=== PATIENT | male | born 1955 | race African-American/Black ===

== ENCOUNTER 2021-09-14 14:35 | Inpatient (IN) ==
[2021-09-14] MEDS ORDERED: Saline Nasal Spray 44 ML BOTTLE NS PRN (17:36)
[2021-09-14] MEDS ORDERED: *HR* Alteplase (Cathflo) 2 MG VIAL IVP ONE (17:57)
[2021-09-14] MEDS ORDERED: *HR* OxyCODONE Immed Rel 5 MG TABLET PO PRN (18:07)
[2021-09-14] MEDS ORDERED: Vancomycin 1,250 MG/262.5 ML IV.SOLN IVPB SCH (19:00)
[2021-09-14] MEDS: Cefepime HCl 2,000 MG in 0.9 % Sodium Chloride Mini Bag 100 ML IVPB SCH (20:40)
[2021-09-14] MEDS: QUEtiapine Fumarate 25 MG TABLET PO SCH (20:41)
[2021-09-14] MEDS: Gabapentin 300 MG CAPSULE PO SCH (20:42)
[2021-09-14] MEDS: Sennosides/Docusate Sodium TABLET PO SCH (20:43)
[2021-09-14] MEDS: Famotidine 20 MG TABLET PO SCH (20:44)
[2021-09-14] MEDS: levETIRAcetam 500 MG/5 ML UDC PO SCH (20:52)
[2021-09-14] MEDS: Vancomycin 500 MG in 0.9 % Sodium Chloride Mini Bag 100 ML IVPB SCH (21:39)
[2021-09-15] MEDS: Cefepime HCl 2,000 MG in 0.9 % Sodium Chloride Mini Bag 100 ML IVPB SCH ×3 (01:33→17:26)
[2021-09-15] MEDS: Vancomycin 500 MG in 0.9 % Sodium Chloride Mini Bag 100 ML IVPB SCH (06:00)
[2021-09-15] MEDS: *HR* Enoxaparin 40 MG/0.4 ML SYRINGE SQ SCH (06:03)
[2021-09-15 08:07] LABS: Basophils % 0.3 %; Eosinophils # 0.3 K/mcL (0.0-0.6); Eosinophils % 4.3 %; Hematocrit 32.8 % (37.5-50.1); Hemoglobin 10.6 g/dL (12.9-16.9); Immature Granulocytes % 0.2 % (0-4); Lymphocytes # 1.3 K/mcL (0.6-4.6); Lymphocytes % 22.2 %; Mean Corpuscular HGB Conc 32.3 g/dL (31.6-35.5); Mean Corpuscular Hemoglobin 28.8 pg (28.0-33.3); Mean Corpuscular Volume 89.1 fL (83.0-100.0); Mean Platelet Volume 10.1 fL (9.4-12.4); Monocytes # 0.9 K/mcL (0.0-1.3); Monocytes % 15.3 %; Neutrophils # 3.5 K/mcL (1.6-8.9); Platelet Count 143 K/mcL (140-400); Red Blood Count 3.68 M/mcL (4.19-5.50); Segmented Neutrophils % 57.7 %
[2021-09-15 08:28] LABS: BUN/Creatinine Ratio 14 (6-26); Blood Urea Nitrogen 11 mg/dL (8-23); Calcium 8.4 mg/dL (8.6-10.3); Carbon Dioxide 28 mEq/L (23-29); Chloride 110 mEq/L (98-107); Glucose 96 mg/dL (70-105); Magnesium 1.9 mg/dL (1.6-2.6); Osmolality,Calculated 295 (280-300); Potassium 4.1 mEq/L (3.5-5.1); Sodium 143 mEq/L (136-145); eGFR For African Americans > 60 (> 60); eGFR For Non-African Americans > 60 (> 60)
[2021-09-15] MEDS ORDERED: VALSARTAN 80 MG PO SCH (09:00)
[2021-09-15] MEDS ORDERED: HYDROCHLOROTHIAZIDE 12.5 MG PO SCH (09:00)
[2021-09-15] MEDS: levETIRAcetam 500 MG/5 ML UDC PO SCH ×2 (09:45→20:11)
[2021-09-15] MEDS: Thiamine (B-1) 100 MG TABLET PO SCH (09:47)
[2021-09-15] MEDS: Valsartan 80 MG TABLET PO SCH (09:47)
[2021-09-15] MEDS: Multivit/Ca/Min/Fe/FA 1 TAB TABLET PO SCH (09:47)
[2021-09-15] MEDS: Famotidine 20 MG TABLET PO SCH ×2 (09:48→20:11)
[2021-09-15] MEDS: Sennosides/Docusate Sodium TABLET PO SCH ×2 (09:48→20:11)
[2021-09-15] MEDS: amLODIPine 5 MG TABLET PO SCH (09:48)
[2021-09-15] MEDS: hydroCHLOROthiazide 25 MG TABLET PO SCH (09:49)
[2021-09-15] MEDS: allopurinoL 300 MG TABLET PO SCH (09:49)
[2021-09-15] MEDS: Gabapentin 300 MG CAPSULE PO SCH (20:11)
[2021-09-15] MEDS: QUEtiapine Fumarate 25 MG TABLET PO SCH (20:11)
[2021-09-15] MEDS: Vancomycin 1,250 MG/262.5 ML IV.SOLN IVPB SCH (20:19)
[2021-09-16] MEDS: Cefepime HCl 2,000 MG in 0.9 % Sodium Chloride Mini Bag 100 ML IVPB SCH ×3 (02:26→17:19)
[2021-09-16] MEDS: *HR* Enoxaparin 40 MG/0.4 ML SYRINGE SQ SCH (05:08)
[2021-09-16] MEDS: levETIRAcetam 500 MG/5 ML UDC PO SCH ×2 (10:12→21:58)
[2021-09-16] MEDS: amLODIPine 5 MG TABLET PO SCH (10:14)
[2021-09-16] MEDS: Valsartan 80 MG TABLET PO SCH (10:15)
[2021-09-16] MEDS: Thiamine (B-1) 100 MG TABLET PO SCH (10:15)
[2021-09-16] MEDS: hydroCHLOROthiazide 25 MG TABLET PO SCH (10:15)
[2021-09-16] MEDS: Sennosides/Docusate Sodium TABLET PO SCH ×2 (10:15→21:56)
[2021-09-16] MEDS: allopurinoL 300 MG TABLET PO SCH (10:16)
[2021-09-16] MEDS: Famotidine 20 MG TABLET PO SCH ×2 (10:16→21:58)
[2021-09-16] MEDS: Multivit/Ca/Min/Fe/FA 1 TAB TABLET PO SCH (10:17)
[2021-09-16] MEDS: Vancomycin 1,250 MG/262.5 ML IV.SOLN IVPB SCH (14:25)
[2021-09-16] MEDS: QUEtiapine Fumarate 25 MG TABLET PO SCH (21:56)
[2021-09-16] MEDS: Gabapentin 300 MG CAPSULE PO SCH (21:57)
[2021-09-17] MEDS: Cefepime HCl 2,000 MG in 0.9 % Sodium Chloride 20 ML IVP SCH ×2 (02:03→09:39)
[2021-09-17] MEDS: Vancomycin 1,250 MG/262.5 ML IV.SOLN IVPB SCH ×3 (02:05→14:48)
[2021-09-17] MEDS: *HR* Enoxaparin 40 MG/0.4 ML SYRINGE SQ SCH (05:22)
[2021-09-17] MEDS: Valsartan 80 MG TABLET PO SCH (09:36)
[2021-09-17] MEDS: allopurinoL 300 MG TABLET PO SCH (09:36)
[2021-09-17] MEDS: Sennosides/Docusate Sodium TABLET PO SCH ×2 (09:37→21:15)
[2021-09-17] MEDS: hydroCHLOROthiazide 25 MG TABLET PO SCH (09:37)
[2021-09-17] MEDS: Thiamine (B-1) 100 MG TABLET PO SCH (09:37)
[2021-09-17] MEDS: Multivit/Ca/Min/Fe/FA 1 TAB TABLET PO SCH (09:38)
[2021-09-17] MEDS: amLODIPine 5 MG TABLET PO SCH (09:38)
[2021-09-17] MEDS: Famotidine 20 MG TABLET PO SCH ×2 (09:38→21:15)
[2021-09-17] MEDS: levETIRAcetam 500 MG/5 ML UDC PO SCH ×2 (09:48→21:19)
[2021-09-17] MEDS: Cefepime HCl 2,000 MG in 0.9 % Sodium Chloride Mini Bag 100 ML IVPB SCH (18:22)
[2021-09-17] MEDS: Gabapentin 300 MG CAPSULE PO SCH (21:14)
[2021-09-17] MEDS: QUEtiapine Fumarate 25 MG TABLET PO SCH (21:14)
[2021-09-18] MEDS: Cefepime HCl 2,000 MG in 0.9 % Sodium Chloride Mini Bag 100 ML IVPB SCH ×3 (02:30→17:19)
[2021-09-18] MEDS: Vancomycin 1,250 MG/262.5 ML IV.SOLN IVPB SCH ×2 (02:33→14:06)
[2021-09-18] MEDS: *HR* Enoxaparin 40 MG/0.4 ML SYRINGE SQ SCH (06:17)
[2021-09-18] MEDS: Multivit/Ca/Min/Fe/FA 1 TAB TABLET PO SCH (09:52)
[2021-09-18] MEDS: Famotidine 20 MG TABLET PO SCH ×2 (09:52→20:06)
[2021-09-18] MEDS: Valsartan 80 MG TABLET PO SCH (09:52)
[2021-09-18] MEDS: amLODIPine 5 MG TABLET PO SCH (09:52)
[2021-09-18] MEDS: hydroCHLOROthiazide 25 MG TABLET PO SCH (09:53)
[2021-09-18] MEDS: allopurinoL 300 MG TABLET PO SCH (09:53)
[2021-09-18] MEDS: Sennosides/Docusate Sodium TABLET PO SCH ×2 (09:54→20:06)
[2021-09-18] MEDS: Thiamine (B-1) 100 MG TABLET PO SCH (09:54)
[2021-09-18] MEDS: levETIRAcetam 500 MG/5 ML UDC PO SCH ×2 (10:11→20:05)
[2021-09-18] MEDS: QUEtiapine Fumarate 25 MG TABLET PO SCH (20:06)
[2021-09-18] MEDS: Gabapentin 300 MG CAPSULE PO SCH (20:06)
[2021-09-19] MEDS: Cefepime HCl 2,000 MG in 0.9 % Sodium Chloride Mini Bag 100 ML IVPB SCH ×3 (01:59→18:10)
[2021-09-19] MEDS: Vancomycin 1,250 MG/262.5 ML IV.SOLN IVPB SCH ×2 (02:36→15:48)
[2021-09-19] MEDS: *HR* Enoxaparin 40 MG/0.4 ML SYRINGE SQ SCH (06:06)
[2021-09-19 07:03] LABS: eGFR For African Americans > 60 (> 60); eGFR For Non-African Americans > 60 (> 60)
[2021-09-19] MEDS: levETIRAcetam 500 MG/5 ML UDC PO SCH ×2 (10:00→20:04)
[2021-09-19] MEDS: Multivit/Ca/Min/Fe/FA 1 TAB TABLET PO SCH (10:01)
[2021-09-19] MEDS: Sennosides/Docusate Sodium TABLET PO SCH ×2 (10:02→20:05)
[2021-09-19] MEDS: Famotidine 20 MG TABLET PO SCH ×2 (10:02→20:04)
[2021-09-19] MEDS: amLODIPine 5 MG TABLET PO SCH (10:03)
[2021-09-19] MEDS: hydroCHLOROthiazide 25 MG TABLET PO SCH (10:03)
[2021-09-19] MEDS: allopurinoL 300 MG TABLET PO SCH (10:03)
[2021-09-19] MEDS: Valsartan 80 MG TABLET PO SCH (10:05)
[2021-09-19] MEDS: Thiamine (B-1) 100 MG TABLET PO SCH (10:05)
[2021-09-19] MEDS ORDERED: Nitroglycerin 0.4 MG TAB.SUBL SL PRN (11:25)
[2021-09-19] MEDS ORDERED: Isovue-370 500 ML BOTTLE IVP ONE (11:58)
[2021-09-19] MEDS ORDERED: *HR* LORazepam 2 MG/ML VIAL IVP PRN (13:40)
[2021-09-19 17:44] LABS: Amphetamine Screen,Urine Negative ng/mL (Cutoff=1000); Barbiturate Screen,Urine Negative ng/mL (Cutoff=200); Benzodiazepines Screen,Urine Negative ng/mL (Cutoff=200); Cannabinoid Screen,Urine Negative ng/mL (Cutoff = 50); Cocaine Screen,Urine Negative ng/mL (Cutoff= 300); Opiate Screen,Urine Negative ng/mL (Cutoff=300); Phencyclidine Screen,Urine Negative ng/mL (Cutoff=25)
[2021-09-19 18:19] LABS: BUN/Creatinine Ratio 16 (6-26); Blood Urea Nitrogen 13 mg/dL (8-23); Calcium 8.3 mg/dL (8.6-10.3); Carbon Dioxide 28 mEq/L (23-29); Chloride 107 mEq/L (98-107); Glucose 82 mg/dL (70-105); Magnesium 2.1 mg/dL (1.6-2.6); Osmolality,Calculated 293 (280-300); Potassium 3.9 mEq/L (3.5-5.1); Sodium 142 mEq/L (136-145); eGFR For African Americans > 60 (> 60); eGFR For Non-African Americans > 60 (> 60)
[2021-09-19] MEDS: Gabapentin 300 MG CAPSULE PO SCH (20:04)
[2021-09-19] MEDS: QUEtiapine Fumarate 25 MG TABLET PO SCH (20:04)
[2021-09-19] MEDS ORDERED: Metoprolol XL (24 HR) Succ 25 MG TAB.ER.24H PO SCH ×2 (22:45→23:04)
[2021-09-19] MEDS ORDERED: Perflutren Lipid Microsphere 1.3 ML in 0.9 % Sodium Chloride 8.7 ML IVP PRN (22:48)
[2021-09-20] MEDS: Metoprolol XL (24 HR) Succ 25 MG TAB.ER.24H PO SCH ×2 (00:05→08:20)
[2021-09-20] MEDS: Cefepime HCl 2,000 MG in 0.9 % Sodium Chloride Mini Bag 100 ML IVPB SCH ×3 (02:09→18:30)
[2021-09-20] MEDS: *HR* Enoxaparin 40 MG/0.4 ML SYRINGE SQ SCH (05:54)
[2021-09-20] MEDS: allopurinoL 300 MG TABLET PO SCH (08:20)
[2021-09-20] MEDS: levETIRAcetam 500 MG/5 ML UDC PO SCH ×2 (08:20→20:16)
[2021-09-20] MEDS: Famotidine 20 MG TABLET PO SCH ×2 (08:20→20:16)
[2021-09-20] MEDS: hydroCHLOROthiazide 25 MG TABLET PO SCH (08:21)
[2021-09-20] MEDS: Thiamine (B-1) 100 MG TABLET PO SCH (08:21)
[2021-09-20] MEDS: Valsartan 80 MG TABLET PO SCH (08:21)
[2021-09-20] MEDS: amLODIPine 5 MG TABLET PO SCH (08:21)
[2021-09-20] MEDS: Multivit/Ca/Min/Fe/FA 1 TAB TABLET PO SCH (08:21)
[2021-09-20] MEDS: Sennosides/Docusate Sodium TABLET PO SCH ×2 (08:27→20:17)
[2021-09-20] MEDS: QUEtiapine Fumarate 25 MG TABLET PO SCH (20:16)
[2021-09-20] MEDS: Gabapentin 300 MG CAPSULE PO SCH (20:16)
[2021-09-21] MEDS: Cefepime HCl 2,000 MG in 0.9 % Sodium Chloride Mini Bag 100 ML IVPB SCH ×3 (02:23→17:23)
[2021-09-21] MEDS: *HR* Enoxaparin 40 MG/0.4 ML SYRINGE SQ SCH (06:17)
[2021-09-21 07:58] LABS: eGFR For African Americans > 60 (> 60); eGFR For Non-African Americans > 60 (> 60)
[2021-09-21] MEDS: levETIRAcetam 500 MG/5 ML UDC PO SCH ×2 (09:45→20:19)
[2021-09-21] MEDS: Sennosides/Docusate Sodium TABLET PO SCH ×2 (09:46→20:20)
[2021-09-21] MEDS: Thiamine (B-1) 100 MG TABLET PO SCH (09:46)
[2021-09-21] MEDS: Multivit/Ca/Min/Fe/FA 1 TAB TABLET PO SCH (09:46)
[2021-09-21] MEDS: Metoprolol XL (24 HR) Succ 25 MG TAB.ER.24H PO SCH (09:50)
[2021-09-21] MEDS: allopurinoL 300 MG TABLET PO SCH (10:15)
[2021-09-21] MEDS: Valsartan 80 MG TABLET PO SCH (10:16)
[2021-09-21] MEDS: hydroCHLOROthiazide 25 MG TABLET PO SCH (10:17)
[2021-09-21] MEDS: Famotidine 20 MG TABLET PO SCH ×2 (10:17→20:20)
[2021-09-21] MEDS: amLODIPine 5 MG TABLET PO SCH (10:17)
[2021-09-21] MEDS: Acetaminophen 325 MG TABLET PO PRN (14:35)
[2021-09-21] MEDS: Gabapentin 300 MG CAPSULE PO SCH (20:19)
[2021-09-21] MEDS: QUEtiapine Fumarate 25 MG TABLET PO SCH (20:20)
[2021-09-22] MEDS: Cefepime HCl 2,000 MG in 0.9 % Sodium Chloride Mini Bag 100 ML IVPB SCH ×3 (02:41→17:54)
[2021-09-22] MEDS: *HR* Enoxaparin 40 MG/0.4 ML SYRINGE SQ SCH (06:01)
[2021-09-22] MEDS ORDERED: lisinopriL 5 MG TABLET PO SCH (09:00)
[2021-09-22] MEDS: Multivit/Ca/Min/Fe/FA 1 TAB TABLET PO SCH (09:06)
[2021-09-22] MEDS: Valsartan 80 MG TABLET PO SCH (09:06)
[2021-09-22] MEDS: allopurinoL 300 MG TABLET PO SCH (09:06)
[2021-09-22] MEDS: Furosemide 20 MG TABLET PO SCH (09:07)
[2021-09-22] MEDS: amLODIPine 5 MG TABLET PO SCH (09:07)
[2021-09-22] MEDS: Metoprolol XL (24 HR) Succ 25 MG TAB.ER.24H PO SCH (09:07)
[2021-09-22] MEDS: hydroCHLOROthiazide 25 MG TABLET PO SCH (09:07)
[2021-09-22] MEDS: Famotidine 20 MG TABLET PO SCH ×2 (09:07→19:53)
[2021-09-22] MEDS: Thiamine (B-1) 100 MG TABLET PO SCH (09:08)
[2021-09-22] MEDS: Sennosides/Docusate Sodium TABLET PO SCH ×2 (09:10→19:56)
[2021-09-22] MEDS: levETIRAcetam 500 MG/5 ML UDC PO SCH ×2 (09:26→19:55)
[2021-09-22] MEDS: Gabapentin 300 MG CAPSULE PO SCH (19:53)
[2021-09-22] MEDS: QUEtiapine Fumarate 25 MG TABLET PO SCH (19:54)
[2021-09-23] MEDS: Cefepime HCl 2,000 MG in 0.9 % Sodium Chloride Mini Bag 100 ML IVPB SCH ×3 (01:49→17:50)
[2021-09-23] MEDS: *HR* Enoxaparin 40 MG/0.4 ML SYRINGE SQ SCH (06:28)
[2021-09-23] MEDS: hydroCHLOROthiazide 25 MG TABLET PO SCH (09:30)
[2021-09-23] MEDS: allopurinoL 300 MG TABLET PO SCH (09:30)
[2021-09-23] MEDS: Valsartan 80 MG TABLET PO SCH (09:30)
[2021-09-23] MEDS: Famotidine 20 MG TABLET PO SCH ×2 (09:30→19:46)
[2021-09-23] MEDS: levETIRAcetam 500 MG/5 ML UDC PO SCH ×2 (09:30→19:47)
[2021-09-23] MEDS: amLODIPine 5 MG TABLET PO SCH (09:30)
[2021-09-23] MEDS: Furosemide 20 MG TABLET PO SCH (09:31)
[2021-09-23] MEDS: Multivit/Ca/Min/Fe/FA 1 TAB TABLET PO SCH (09:31)
[2021-09-23] MEDS: Thiamine (B-1) 100 MG TABLET PO SCH (09:31)
[2021-09-23] MEDS: Metoprolol XL (24 HR) Succ 25 MG TAB.ER.24H PO SCH (09:32)
[2021-09-23] MEDS: Sennosides/Docusate Sodium TABLET PO SCH ×2 (09:33→19:47)
[2021-09-23] MEDS ORDERED: Metoprolol XL (24 HR) Succ 25 MG TAB.ER.24H PO ONE (14:14)
[2021-09-23] MEDS: QUEtiapine Fumarate 25 MG TABLET PO SCH (19:44)
[2021-09-23] MEDS: Gabapentin 300 MG CAPSULE PO SCH (19:46)
[2021-09-24] MEDS: Cefepime HCl 2,000 MG in 0.9 % Sodium Chloride Mini Bag 100 ML IVPB SCH ×3 (01:46→17:40)
[2021-09-24] MEDS: *HR* Enoxaparin 40 MG/0.4 ML SYRINGE SQ SCH (05:54)
[2021-09-24] MEDS: Metoprolol XL (24 HR) Succ 25 MG TAB.ER.24H PO SCH (07:30)
[2021-09-24 07:35] LABS: Basophils % 0.6 %; Eosinophils # 0.2 K/mcL (0.0-0.6); Eosinophils % 3.9 %; Hemoglobin 10.9 g/dL (12.9-16.9); Immature Granulocytes % 0.2 % (0-4); Lymphocytes # 1.5 K/mcL (0.6-4.6); Lymphocytes % 28.5 %; Mean Corpuscular Volume 87.8 fL (83.0-100.0); Mean Platelet Volume 10.1 fL (9.4-12.4); Monocytes # 0.9 K/mcL (0.0-1.3); Monocytes % 17.1 %; Neutrophils # 2.5 K/mcL (1.6-8.9); Platelet Count 189 K/mcL (140-400); Red Blood Count 3.76 M/mcL (4.19-5.50); Red Cell Distribution Width 14.6 % (11.5-14.5); Segmented Neutrophils % 49.7 %; White Blood Count 5.1 K/mcL (4.3-11.1)
[2021-09-24] MEDS: Multivit/Ca/Min/Fe/FA 1 TAB TABLET PO SCH (07:41)
[2021-09-24] MEDS: Valsartan 80 MG TABLET PO SCH (07:42)
[2021-09-24] MEDS: amLODIPine 5 MG TABLET PO SCH (07:42)
[2021-09-24] MEDS: Famotidine 20 MG TABLET PO SCH ×2 (07:42→20:27)
[2021-09-24] MEDS: Thiamine (B-1) 100 MG TABLET PO SCH (07:43)
[2021-09-24] MEDS: Furosemide 20 MG TABLET PO SCH (07:43)
[2021-09-24] MEDS: allopurinoL 300 MG TABLET PO SCH (07:43)
[2021-09-24] MEDS: levETIRAcetam 500 MG/5 ML UDC PO SCH ×2 (07:44→20:26)
[2021-09-24] MEDS: hydroCHLOROthiazide 25 MG TABLET PO SCH (07:48)
[2021-09-24] MEDS: Sennosides/Docusate Sodium TABLET PO SCH ×2 (07:49→20:26)
[2021-09-24 07:58] LABS: Alanine Aminotransferase 10 Units/L (7-52); Albumin 3.5 g/dL (3.5-5.7); Albumin/Globulin Ratio 1.1 (1.1-2.2); Alkaline Phosphatase 57 Units/L (34-104); Aspartate Amino Transferase 17 Units/L (13-39); BUN/Creatinine Ratio 18 (6-26); Bilirubin,Indirect 0.3 mg/dL (0.0-1.0); Bilirubin,Total 0.3 mg/dL (0.3-1.0); Blood Urea Nitrogen 16 mg/dL (8-23); Calcium 8.5 mg/dL (8.6-10.3); Carbon Dioxide 33 mEq/L (23-29); Chloride 106 mEq/L (98-107); Globulin 3.2 g/dL (2.4-3.5); Glucose 90 mg/dL (70-105); Osmolality,Calculated 299 (280-300); Sodium 144 mEq/L (136-145); Total Protein 6.7 g/dL (6.4-8.9); eGFR For African Americans > 60 (> 60); eGFR For Non-African Americans > 60 (> 60)
[2021-09-24] MEDS: Gabapentin 300 MG CAPSULE PO SCH (20:26)
[2021-09-24] MEDS: QUEtiapine Fumarate 25 MG TABLET PO SCH (20:27)
[2021-09-25] MEDS: Cefepime HCl 2,000 MG in 0.9 % Sodium Chloride Mini Bag 100 ML IVPB SCH ×3 (03:25→18:12)
[2021-09-25] MEDS: *HR* Enoxaparin 40 MG/0.4 ML SYRINGE SQ SCH (07:31)
[2021-09-25] MEDS: Multivit/Ca/Min/Fe/FA 1 TAB TABLET PO SCH (08:57)
[2021-09-25] MEDS: Famotidine 20 MG TABLET PO SCH ×2 (08:58→20:31)
[2021-09-25] MEDS: Metoprolol XL (24 HR) Succ 25 MG TAB.ER.24H PO SCH (09:00)
[2021-09-25] MEDS: amLODIPine 5 MG TABLET PO SCH (09:00)
[2021-09-25] MEDS: hydroCHLOROthiazide 25 MG TABLET PO SCH (09:01)
[2021-09-25] MEDS: Sennosides/Docusate Sodium TABLET PO SCH (09:02)
[2021-09-25] MEDS: Furosemide 20 MG TABLET PO SCH (09:02)
[2021-09-25] MEDS: levETIRAcetam 500 MG/5 ML UDC PO SCH ×2 (09:02→20:31)
[2021-09-25] MEDS: Thiamine (B-1) 100 MG TABLET PO SCH (09:03)
[2021-09-25] MEDS: Valsartan 80 MG TABLET PO SCH (09:14)
[2021-09-25] MEDS: allopurinoL 300 MG TABLET PO SCH (09:14)
[2021-09-25] MEDS: QUEtiapine Fumarate 25 MG TABLET PO SCH (20:31)
[2021-09-25] MEDS: Gabapentin 300 MG CAPSULE PO SCH (20:31)
[2021-09-26] MEDS ORDERED: Ondansetron 4 MG/2 ML VIAL IVP PRN (02:21)
[2021-09-26] MEDS ORDERED: Pantoprazole 40 MG VIAL IVP ONE (02:21)
[2021-09-26] MEDS ORDERED: Simethicone 80 MG TAB.CHEW PO PRN (02:21)
[2021-09-26] MEDS: Cefepime HCl 2,000 MG in 0.9 % Sodium Chloride Mini Bag 100 ML IVPB SCH ×3 (02:28→17:21)
[2021-09-26] MEDS: *HR* Enoxaparin 40 MG/0.4 ML SYRINGE SQ SCH (06:11)
[2021-09-26] MEDS: Acetaminophen 325 MG TABLET PO PRN ×4 (06:11→23:35)
[2021-09-26] MEDS: Thiamine (B-1) 100 MG TABLET PO SCH (09:29)
[2021-09-26] MEDS: allopurinoL 300 MG TABLET PO SCH (09:29)
[2021-09-26] MEDS: Lactobacillus 1 EACH CAP.SPRINK PO SCH (09:29)
[2021-09-26] MEDS: amLODIPine 5 MG TABLET PO SCH (09:30)
[2021-09-26] MEDS: Valsartan 80 MG TABLET PO SCH (09:30)
[2021-09-26] MEDS: Multivit/Ca/Min/Fe/FA 1 TAB TABLET PO SCH (09:30)
[2021-09-26] MEDS: Furosemide 20 MG TABLET PO SCH (09:30)
[2021-09-26] MEDS: Famotidine 20 MG TABLET PO SCH ×2 (09:30→20:13)
[2021-09-26] MEDS: levETIRAcetam 500 MG/5 ML UDC PO SCH ×2 (09:31→20:13)
[2021-09-26] MEDS: hydroCHLOROthiazide 25 MG TABLET PO SCH (09:31)
[2021-09-26] MEDS: Metoprolol XL (24 HR) Succ 25 MG TAB.ER.24H PO SCH (09:32)
[2021-09-26 14:12] LABS: Basophils % 0.1 %; Eosinophils % 0.3 %; Hematocrit 36.1 % (37.5-50.1); Hemoglobin 11.9 g/dL (12.9-16.9); Immature Granulocytes % 0.2 % (0-4); Lymphocytes # 0.4 K/mcL (0.6-4.6); Lymphocytes % 4.3 %; Mean Corpuscular Hemoglobin 28.7 pg (28.0-33.3); Mean Corpuscular Volume 87.2 fL (83.0-100.0); Mean Platelet Volume 10.3 fL (9.4-12.4); Monocytes # 0.9 K/mcL (0.0-1.3); Monocytes % 8.9 %; Neutrophils # 8.4 K/mcL (1.6-8.9); Platelet Count 174 K/mcL (140-400); Red Blood Count 4.14 M/mcL (4.19-5.50); Red Cell Distribution Width 14.4 % (11.5-14.5); Segmented Neutrophils % 86.2 %; White Blood Count 9.7 K/mcL (4.3-11.1)
[2021-09-26 14:32] LABS: BUN/Creatinine Ratio 16 (6-26); Blood Urea Nitrogen 16 mg/dL (8-23); Calcium 8.8 mg/dL (8.6-10.3); Carbon Dioxide 31 mEq/L (23-29); Chloride 103 mEq/L (98-107); Glucose 110 mg/dL (70-105); Magnesium 1.7 mg/dL (1.6-2.6); Osmolality,Calculated 290 (280-300); Potassium 3.5 mEq/L (3.5-5.1); Sodium 139 mEq/L (136-145); eGFR For African Americans > 60 (> 60); eGFR For Non-African Americans > 60 (> 60)
[2021-09-26] MEDS ORDERED: 0.9 % Sodium Chloride 1,000 ML IVC ONE (19:25)
[2021-09-26] MEDS: QUEtiapine Fumarate 25 MG TABLET PO SCH (20:14)
[2021-09-26] MEDS: Gabapentin 300 MG CAPSULE PO SCH (20:15)
[2021-09-26] MEDS ORDERED: Ringers Solution, Lactated 1,000 ML IVC ONE (23:58)
[2021-09-27 00:45] LABS: Basophils % 0.3 %; Eosinophils % 0.1 %; Hematocrit 30.1 % (37.5-50.1); Hemoglobin 10.1 g/dL (12.9-16.9); Immature Granulocytes % 0.1 % (0-4); Lymphocytes # 0.6 K/mcL (0.6-4.6); Lymphocytes % 8.4 %; Mean Corpuscular HGB Conc 33.6 g/dL (31.6-35.5); Mean Corpuscular Hemoglobin 29.2 pg (28.0-33.3); Mean Platelet Volume 10.5 fL (9.4-12.4); Monocytes # 0.7 K/mcL (0.0-1.3); Monocytes % 9.2 %; Platelet Count 151 K/mcL (140-400); Red Blood Count 3.46 M/mcL (4.19-5.50); Red Cell Distribution Width 14.3 % (11.5-14.5); Segmented Neutrophils % 81.9 %; White Blood Count 7.4 K/mcL (4.3-11.1)
[2021-09-27 01:06] LABS: BUN/Creatinine Ratio 16 (6-26); Blood Urea Nitrogen 19 mg/dL (8-23); Calcium 8.1 mg/dL (8.6-10.3); Carbon Dioxide 24 mEq/L (23-29); Chloride 106 mEq/L (98-107); Glucose 136 mg/dL (70-105); Magnesium 1.6 mg/dL (1.6-2.6); Osmolality,Calculated 290 (280-300); Potassium 3.1 mEq/L (3.5-5.1); Sodium 138 mEq/L (136-145); eGFR For African Americans > 60 (> 60); eGFR For Non-African Americans > 60 (> 60)
[2021-09-27] MEDS: Cefepime HCl 2,000 MG in 0.9 % Sodium Chloride Mini Bag 100 ML IVPB SCH ×2 (01:33→10:40)
[2021-09-27 02:08] LABS: Bilirubin,Urine Negative (Negative); Blood,Urine Trace-intact (Negative); Clarity,Urine Slightly Cloudy (Clear); Color,Urine Dark Yellow (Yellow); Glucose,Urine (UA) Normal (Normal); Ketones,Urine Trace mg/dL (Negative); Leukocyte Esterase,Urine Negative (Negative); Nitrite,Urine Negative (Negative); PH,Urine 5.5 pH Units (5.0-8.0); Protein,Urine 30 mg/dL (Neg-Trace); Urobilinogen,Urine Normal (Normal)
[2021-09-27 02:15] LABS: Amorphous Sediment,Urine Moderate per hpf (None-Few); Bacteria,Urine Few per hpf (None-Few); Squamous Epithelial Cell,Urine Few per hpf (None-Few)
[2021-09-27] MEDS: *HR* Enoxaparin 40 MG/0.4 ML SYRINGE SQ SCH (05:45)
[2021-09-27 08:00] VITALS: RESP 18; TEMP 98.5
[2021-09-27] MEDS ORDERED: Potassium Chloride Elixir 20 MEQ/15 ML UDC PO ONE (09:26)
[2021-09-27] MEDS: Valsartan 80 MG TABLET PO SCH (10:17)
[2021-09-27] MEDS: hydroCHLOROthiazide 25 MG TABLET PO SCH (10:18)
[2021-09-27] MEDS: Furosemide 20 MG TABLET PO SCH (10:18)
[2021-09-27] MEDS: amLODIPine 5 MG TABLET PO SCH (10:19)
[2021-09-27 10:37] VITALS: O2SAT 98
[2021-09-27] MEDS: levETIRAcetam 500 MG/5 ML UDC PO SCH (10:37)
[2021-09-27] MEDS: Multivit/Ca/Min/Fe/FA 1 TAB TABLET PO SCH (10:38)
[2021-09-27] MEDS: Thiamine (B-1) 100 MG TABLET PO SCH (10:38)
[2021-09-27] MEDS: Lactobacillus 1 EACH CAP.SPRINK PO SCH (10:39)
[2021-09-27] MEDS: Metoprolol XL (24 HR) Succ 25 MG TAB.ER.24H PO SCH (10:39)
[2021-09-27] MEDS: allopurinoL 300 MG TABLET PO SCH (10:39)
[2021-09-27] MEDS: Famotidine 20 MG TABLET PO SCH (10:40)
[2021-09-27 10:54] LABS: Campylobacter by PCR Not detected (Not detect)
[2021-09-27 10:58] LABS: Adenovirus F 40/41 PCR Not detected (Not detect); Astrovirus PCR Not detected (Not detect); C.difficile Toxin A/B Gene PCR DETECTED (Not detect); Cryptosporidium by PCR Not detected (Not detect); Cyclospora cayetanensis PCR Not detected (Not detect); Entamoeba histolytica PCR Not detected (Not detect); Enteroaggregative E.coli(EAEC) Not detected (Not detect); Enteropathogenic E.coli(EPEC) Not detected (Not detect); Enterotoxigenic E.coli (ETEC) Not detected (Not detect); Giardia lamblia PCR Not detected (Not detect); Norovirus GI/GII PCR Not detected (Not detect); Plesiomonas shigelloides PCR Not detected (Not detect); Rotavirus A PCR Not detected (Not detect); Salmonella PCR Not detected (Not detect); Sapovirus PCR Not detected (Not detect); Shig/EnteroinvasiveE coli EIEC Not detected (Not detect); Shigalike tox-prod E coli STEC Not detected (Not detect); Vibrio PCR Not detected (Not detect); Vibrio cholerae PCR Not detected (Not detect); Yersinia enterocolitica PCR Not detected (Not detect)
[2021-09-27 11:36] VITALS: BP 118/67; PULSE 87
[2021-09-27] MEDS ORDERED: Vancomycin Oral Soln 125 MG/2.5 ML UDC PO SCH (13:00)
[2021-09-28 05:25] LABS: mecA/C Methicillin-Resist Gene DETECTED (Not Detect)
[2021-09-28 05:26] LABS: Enterococcus faecalis by PCR Not Detected (Not Detect); Enterococcus faecium by PCR Not Detected (Not Detect); Staphylococcus aureus by PCR Not Detected (Not Detect); Staphylococcus by PCR Not Detected (Not Detect)
[2021-09-28 05:28] LABS: A.calcoaceticus-baumannii cplx Not Detected (Not Detect); Bacteroides fragilis by PCR Not Detected (Not Detect); Candida albicans by PCR Not Detected (Not Detect); Candida auris by PCR Not Detected (Not Detect); Candida glabrata by PCR Not Detected (Not Detect); Candida krusei by PCR Not Detected (Not Detect); Candida parapsilosis by PCR Not Detected (Not Detect); Candida tropicalis by PCR Not Detected (Not Detect); Crypto. neoformans/gattii PCR Not Detected (Not Detect); Enterobacter cloacae Cmplx PCR Not Detected (Not Detect); Enterobacterales by PCR Not Detected (Not Detect); Escherichia coli by PCR Not Detected (Not Detect); Klebs. pneumoniae group by PCR Not Detected (Not Detect); Klebsiella aerogenes by PCR Not Detected (Not Detect); Klebsiella oxytoca by PCR Not Detected (Not Detect); Proteus by PCR Not Detected (Not Detect); Pseudomonas aeruginosa by PCR Not Detected (Not Detect); Salmonella species by PCR Not Detected (Not Detect); Serratia marcescens by PCR Not Detected (Not Detect); Staph epidermidis by PCR DETECTED (Not Detect); Staph lugdunensis by PCR Not Detected (Not Detect); Stenotrophomonas maltophilia Not Detected (Not Detect); Streptococcus agalactiae(B)PCR Not Detected (Not Detect); Streptococcus by PCR Not Detected (Not Detect); Streptococcus pneumoniae PCR Not Detected (Not Detect); Streptococcus pyogenes (A) PCR Not Detected (Not Detect)
== END 2021-09-27 13:18 | disposition short-term general hospital (02) | DRG 871 ==
LOC: INPPIK 18:19
PROVIDERS: ADMIT Internal Medicine; ATTEND Internal Medicine

== ENCOUNTER 2021-10-01 20:13 | Inpatient (IN) ==
[2021-10-01] MEDS ORDERED: *HR* LORazepam 2 MG/ML VIAL IVP PRN (21:57)
[2021-10-02] MEDS ORDERED: NON-FORMULARY MEDICATION 1 EACH EACH (Cefepime Hcl/Dextrose, Iso-Osm [Cefepime 2 Gm Inject IV SCH
[2021-10-02] MEDS ORDERED: VANCOMYCIN IVPB ONE
[2021-10-02] MEDS ORDERED: SODIUM CHLORIDE 0.9% IVPB ONE
[2021-10-02] MEDS: Cefepime HCl 2,000 MG in 0.9 % Sodium Chloride 10 ML IVP SCH ×3 (01:05→15:14)
[2021-10-02] MEDS: levETIRAcetam 250 MG TABLET PO SCH ×2 (05:41→18:01)
[2021-10-02] MEDS ORDERED: [UNRECOGNIZED DRUG - OTHER] IV SCH (06:00)
[2021-10-02] MEDS ORDERED: SOD CHLORIDE IV SCH (06:00)
[2021-10-02] MEDS ORDERED: VANCOMYCIN IV SCH (06:00)
[2021-10-02] MEDS: *HR* Enoxaparin 40 MG/0.4 ML SYRINGE SQ SCH (08:00)
[2021-10-02] MEDS: allopurinoL 100 MG TABLET PO SCH (11:17)
[2021-10-02] MEDS: lisinopriL 5 MG TABLET PO SCH (11:18)
[2021-10-02] MEDS: Famotidine 20 MG TABLET PO SCH ×2 (11:19→15:14)
[2021-10-02] MEDS: Vancomycin Oral Soln 125 MG/2.5 ML UDC PO SCH ×4 (11:19→21:27)
[2021-10-02] MEDS: Metoprolol XL (24 HR) Succ 25 MG TAB.ER.24H PO SCH (11:20)
[2021-10-02] MEDS: Vancomycin 1,250 MG/262.5 ML IV.SOLN IVPB SCH (11:31)
[2021-10-02 13:31] LABS: Basophils % 0.4 %; Eosinophils # 0.1 K/mcL (0.0-0.6); Eosinophils % 1.9 %; Hematocrit 31.7 % (37.5-50.1); Hemoglobin 10.5 g/dL (12.9-16.9); Lymphocytes # 1.3 K/mcL (0.6-4.6); Lymphocytes % 25.2 %; Mean Corpuscular HGB Conc 33.1 g/dL (31.6-35.5); Mean Corpuscular Hemoglobin 28.8 pg (28.0-33.3); Mean Corpuscular Volume 87.1 fL (83.0-100.0); Monocytes # 0.7 K/mcL (0.0-1.3); Monocytes % 12.5 %; Neutrophils # 3.1 K/mcL (1.6-8.9); Platelet Count 139 K/mcL (140-400); Red Blood Count 3.64 M/mcL (4.19-5.50); Red Cell Distribution Width 14.5 % (11.5-14.5); White Blood Count 5.2 K/mcL (4.3-11.1)
[2021-10-02 13:47] LABS: BUN/Creatinine Ratio 14 (6-26); Blood Urea Nitrogen 13 mg/dL (8-23); Calcium 8.3 mg/dL (8.6-10.3); Carbon Dioxide 26 mEq/L (23-29); Chloride 112 mEq/L (98-107); Glucose 100 mg/dL (70-105); Osmolality,Calculated 298 (280-300); Potassium 3.1 mEq/L (3.5-5.1); Sodium 144 mEq/L (136-145); eGFR For African Americans > 60 (> 60); eGFR For Non-African Americans > 60 (> 60)
[2021-10-03] MEDS: Cefepime HCl 2,000 MG in 0.9 % Sodium Chloride 10 ML IVP SCH ×3 (01:59→16:51)
[2021-10-03] MEDS: Vancomycin 1,250 MG/262.5 ML IV.SOLN IVPB SCH ×2 (02:01→12:57)
[2021-10-03] MEDS: Famotidine 20 MG TABLET PO SCH ×2 (06:12→16:51)
[2021-10-03] MEDS: *HR* Enoxaparin 40 MG/0.4 ML SYRINGE SQ SCH (06:12)
[2021-10-03] MEDS: levETIRAcetam 250 MG TABLET PO SCH ×2 (06:12→16:51)
[2021-10-03] MEDS: Vancomycin Oral Soln 125 MG/2.5 ML UDC PO SCH ×4 (10:42→21:10)
[2021-10-03] MEDS: lisinopriL 5 MG TABLET PO SCH (10:43)
[2021-10-03] MEDS: Metoprolol XL (24 HR) Succ 25 MG TAB.ER.24H PO SCH (10:43)
[2021-10-03] MEDS: allopurinoL 100 MG TABLET PO SCH (10:44)
[2021-10-04] MEDS: Vancomycin 1,250 MG/262.5 ML IV.SOLN IVPB SCH ×2 (00:48→15:56)
[2021-10-04] MEDS: Cefepime HCl 2,000 MG in 0.9 % Sodium Chloride 10 ML IVP SCH ×3 (00:48→18:48)
[2021-10-04] MEDS: Acetaminophen 325 MG TABLET PO PRN ×2 (02:38→21:56)
[2021-10-04] MEDS: Famotidine 20 MG TABLET PO SCH ×2 (05:41→18:49)
[2021-10-04] MEDS: levETIRAcetam 250 MG TABLET PO SCH ×2 (05:41→18:49)
[2021-10-04] MEDS: *HR* Enoxaparin 40 MG/0.4 ML SYRINGE SQ SCH (05:41)
[2021-10-04] MEDS: Vancomycin Oral Soln 125 MG/2.5 ML UDC PO SCH ×4 (13:47→21:51)
[2021-10-04] MEDS: lisinopriL 5 MG TABLET PO SCH (14:27)
[2021-10-04] MEDS: allopurinoL 100 MG TABLET PO SCH (14:28)
[2021-10-04] MEDS: Metoprolol XL (24 HR) Succ 25 MG TAB.ER.24H PO SCH (14:28)
[2021-10-05] MEDS: Cefepime HCl 2,000 MG in 0.9 % Sodium Chloride 10 ML IVP SCH ×3 (02:29→17:14)
[2021-10-05] MEDS: *HR* Enoxaparin 40 MG/0.4 ML SYRINGE SQ SCH (07:10)
[2021-10-05] MEDS: levETIRAcetam 250 MG TABLET PO SCH ×2 (07:10→17:14)
[2021-10-05] MEDS: Vancomycin Oral Soln 125 MG/2.5 ML UDC PO SCH ×4 (08:55→22:13)
[2021-10-05] MEDS: allopurinoL 100 MG TABLET PO SCH (08:56)
[2021-10-05] MEDS: lisinopriL 5 MG TABLET PO SCH (08:56)
[2021-10-05] MEDS: Famotidine 20 MG TABLET PO SCH ×2 (08:56→17:15)
[2021-10-05] MEDS: Metoprolol XL (24 HR) Succ 25 MG TAB.ER.24H PO SCH (08:56)
[2021-10-05] MEDS: Acetaminophen 325 MG TABLET PO PRN (22:13)
[2021-10-06] MEDS: Cefepime HCl 2,000 MG in 0.9 % Sodium Chloride 10 ML IVP SCH ×4 (00:48→23:52)
[2021-10-06] MEDS: levETIRAcetam 250 MG TABLET PO SCH ×2 (06:35→17:37)
[2021-10-06] MEDS: *HR* Enoxaparin 40 MG/0.4 ML SYRINGE SQ SCH (06:35)
[2021-10-06] MEDS: Famotidine 20 MG TABLET PO SCH ×2 (07:56→16:44)
[2021-10-06] MEDS: Acetaminophen 325 MG TABLET PO PRN (08:05)
[2021-10-06] MEDS: Metoprolol XL (24 HR) Succ 25 MG TAB.ER.24H PO SCH (11:06)
[2021-10-06] MEDS: allopurinoL 100 MG TABLET PO SCH (11:06)
[2021-10-06] MEDS: Vancomycin Oral Soln 125 MG/2.5 ML UDC PO SCH ×4 (11:06→20:16)
[2021-10-06] MEDS: lisinopriL 5 MG TABLET PO SCH (11:06)
[2021-10-06] MEDS ORDERED: GI Cocktail 40 ML EACH PO ONE (17:56)
[2021-10-06] MEDS ORDERED: Sennosides 8.6 MG TABLET PO PRN (18:42)
[2021-10-07] MEDS: *HR* Enoxaparin 40 MG/0.4 ML SYRINGE SQ SCH (05:36)
[2021-10-07] MEDS: levETIRAcetam 250 MG TABLET PO SCH ×3 (05:36→20:23)
[2021-10-07 08:47] LABS: Vancomycin,Random 15 mcg/mL; eGFR For African Americans > 60 (> 60); eGFR For Non-African Americans > 60 (> 60)
[2021-10-07] MEDS: lisinopriL 5 MG TABLET PO SCH (09:10)
[2021-10-07] MEDS: Vancomycin 1,750 MG/517.5 ML IV.SOLN IVPB SCH (09:10)
[2021-10-07] MEDS: Cefepime HCl 2,000 MG in 0.9 % Sodium Chloride 10 ML IVP SCH ×2 (09:10→16:52)
[2021-10-07] MEDS: amLODIPine 5 MG TABLET PO SCH (09:11)
[2021-10-07] MEDS: Metoprolol XL (24 HR) Succ 25 MG TAB.ER.24H PO SCH (09:11)
[2021-10-07] MEDS: Famotidine 20 MG TABLET PO SCH ×2 (09:22→16:50)
[2021-10-07] MEDS: Vancomycin Oral Soln 125 MG/2.5 ML UDC PO SCH ×4 (09:22→20:23)
[2021-10-07] MEDS: allopurinoL 100 MG TABLET PO SCH (09:23)
[2021-10-08] MEDS: Cefepime HCl 2,000 MG in 0.9 % Sodium Chloride 10 ML IVP SCH ×3 (01:19→16:44)
[2021-10-08] MEDS: *HR* Enoxaparin 40 MG/0.4 ML SYRINGE SQ SCH (05:43)
[2021-10-08] MEDS: Famotidine 20 MG TABLET PO SCH ×2 (05:46→16:47)
[2021-10-08] MEDS: levETIRAcetam 250 MG TABLET PO SCH ×2 (05:46→18:26)
[2021-10-08 07:34] LABS: Basophils % 0.5 %; Eosinophils # 0.1 K/mcL (0.0-0.6); Eosinophils % 2.3 %; Hemoglobin 9.7 g/dL (12.9-16.9); Immature Granulocytes % 0.4 % (0-4); Lymphocytes # 1.3 K/mcL (0.6-4.6); Lymphocytes % 23.9 %; Mean Corpuscular HGB Conc 32.3 g/dL (31.6-35.5); Mean Corpuscular Hemoglobin 28.1 pg (28.0-33.3); Monocytes # 0.6 K/mcL (0.0-1.3); Neutrophils # 3.5 K/mcL (1.6-8.9); Platelet Count 144 K/mcL (140-400); Red Blood Count 3.45 M/mcL (4.19-5.50); Segmented Neutrophils % 61.9 %; White Blood Count 5.6 K/mcL (4.3-11.1)
[2021-10-08] MEDS: Vancomycin Oral Soln 125 MG/2.5 ML UDC PO SCH ×4 (08:15→20:42)
[2021-10-08] MEDS: lisinopriL 5 MG TABLET PO SCH (08:17)
[2021-10-08] MEDS: Metoprolol XL (24 HR) Succ 25 MG TAB.ER.24H PO SCH (08:17)
[2021-10-08] MEDS: amLODIPine 5 MG TABLET PO SCH (08:18)
[2021-10-08] MEDS: allopurinoL 100 MG TABLET PO SCH (08:19)
[2021-10-08] MEDS: Vancomycin 1,750 MG/517.5 ML IV.SOLN IVPB SCH (08:37)
[2021-10-08 11:42] LABS: BUN/Creatinine Ratio 11 (6-26); Blood Urea Nitrogen 10 mg/dL (8-23); Calcium 8.4 mg/dL (8.6-10.3); Carbon Dioxide 30 mEq/L (23-29); Chloride 109 mEq/L (98-107); Glucose 86 mg/dL (70-105); Osmolality,Calculated 302 (280-300); Sodium 147 mEq/L (136-145); eGFR For African Americans > 60 (> 60); eGFR For Non-African Americans > 60 (> 60)
[2021-10-08 14:29] LABS: C-Reactive Protein 5 mg/L (Less than 10)
[2021-10-08] MEDS ORDERED: D5% in 0.45% NACL 1,000 ML IVC SCH (16:15)
[2021-10-08 17:15] LABS: Bilirubin,Urine Negative (Negative); Blood,Urine Small (Negative); Clarity,Urine Cloudy (Clear); Color,Urine Yellow (Yellow); Glucose,Urine (UA) Normal (Normal); Ketones,Urine Negative (Negative); Leukocyte Esterase,Urine Negative (Negative); Nitrite,Urine Negative (Negative); Protein,Urine 30 mg/dL (Neg-Trace); Urobilinogen,Urine Normal (Normal)
[2021-10-08 17:22] LABS: Amorphous Sediment,Urine Many per hpf (None-Few); Mucus,Urine Few per lpf (None-Few); RBC,Urine 0-3 per hpf (0-3); Squamous Epithelial Cell,Urine Few per hpf (None-Few); WBC,Urine 0-3 per hpf (0-3)
[2021-10-09] MEDS: Cefepime HCl 2,000 MG in 0.9 % Sodium Chloride 10 ML IVP SCH ×4 (00:52→23:54)
[2021-10-09] MEDS ORDERED: D5% in Water 1,000 ML IVC SCH (03:00)
[2021-10-09] MEDS: *HR* Enoxaparin 40 MG/0.4 ML SYRINGE SQ SCH (06:25)
[2021-10-09] MEDS: levETIRAcetam 250 MG TABLET PO SCH ×2 (06:25→17:38)
[2021-10-09 08:39] LABS: BUN/Creatinine Ratio 11 (6-26); Blood Urea Nitrogen 10 mg/dL (8-23); Calcium 8.3 mg/dL (8.6-10.3); Carbon Dioxide 30 mEq/L (23-29); Chloride 109 mEq/L (98-107); Glucose 96 mg/dL (70-105); Osmolality,Calculated 299 (280-300); Potassium 3.1 mEq/L (3.5-5.1); Sodium 145 mEq/L (136-145); eGFR For African Americans > 60 (> 60); eGFR For Non-African Americans > 60 (> 60)
[2021-10-09] MEDS: Vancomycin Oral Soln 125 MG/2.5 ML UDC PO SCH ×4 (08:54→20:45)
[2021-10-09] MEDS: lisinopriL 5 MG TABLET PO SCH (08:55)
[2021-10-09] MEDS: amLODIPine 5 MG TABLET PO SCH (08:55)
[2021-10-09] MEDS: allopurinoL 100 MG TABLET PO SCH (08:55)
[2021-10-09] MEDS: Famotidine 20 MG TABLET PO SCH ×2 (08:55→17:38)
[2021-10-09] MEDS: Metoprolol XL (24 HR) Succ 25 MG TAB.ER.24H PO SCH (08:55)
[2021-10-09] MEDS: Vancomycin 2,000 MG/520 ML IV.SOLN IVPB SCH (10:58)
[2021-10-10] MEDS: Famotidine 20 MG TABLET PO SCH ×2 (05:56→15:21)
[2021-10-10] MEDS: levETIRAcetam 250 MG TABLET PO SCH ×2 (06:01→16:39)
[2021-10-10] MEDS: *HR* Enoxaparin 40 MG/0.4 ML SYRINGE SQ SCH (06:01)
[2021-10-10] MEDS: allopurinoL 100 MG TABLET PO SCH (07:55)
[2021-10-10] MEDS: amLODIPine 5 MG TABLET PO SCH (07:55)
[2021-10-10] MEDS: Metoprolol XL (24 HR) Succ 25 MG TAB.ER.24H PO SCH (07:55)
[2021-10-10] MEDS: Cefepime HCl 2,000 MG in 0.9 % Sodium Chloride 10 ML IVP SCH ×3 (07:56→23:47)
[2021-10-10] MEDS: lisinopriL 5 MG TABLET PO SCH (08:07)
[2021-10-10] MEDS: Vancomycin 2,000 MG/520 ML IV.SOLN IVPB SCH ×2 (08:13→16:39)
[2021-10-10] MEDS: Vancomycin Oral Soln 125 MG/2.5 ML UDC PO SCH ×4 (08:15→19:54)
[2021-10-11] MEDS: *HR* Enoxaparin 40 MG/0.4 ML SYRINGE SQ SCH (05:53)
[2021-10-11] MEDS: levETIRAcetam 250 MG TABLET PO SCH ×2 (05:53→16:22)
[2021-10-11 07:57] LABS: BUN/Creatinine Ratio 12 (6-26); Blood Urea Nitrogen 11 mg/dL (8-23); Calcium 8.3 mg/dL (8.6-10.3); Carbon Dioxide 31 mEq/L (23-29); Chloride 108 mEq/L (98-107); Glucose 89 mg/dL (70-105); Osmolality,Calculated 299 (280-300); Potassium 3.4 mEq/L (3.5-5.1); Sodium 145 mEq/L (136-145); eGFR For African Americans > 60 (> 60); eGFR For Non-African Americans > 60 (> 60)
[2021-10-11] MEDS: amLODIPine 5 MG TABLET PO SCH (08:02)
[2021-10-11] MEDS: Vancomycin Oral Soln 125 MG/2.5 ML UDC PO SCH ×4 (08:02→19:53)
[2021-10-11] MEDS: lisinopriL 5 MG TABLET PO SCH (08:03)
[2021-10-11] MEDS: Famotidine 20 MG TABLET PO SCH ×2 (08:03→16:00)
[2021-10-11] MEDS: allopurinoL 100 MG TABLET PO SCH (08:03)
[2021-10-11] MEDS: Metoprolol XL (24 HR) Succ 25 MG TAB.ER.24H PO SCH (08:04)
[2021-10-11] MEDS: Cefepime HCl 2,000 MG in 0.9 % Sodium Chloride 10 ML IVP SCH ×2 (10:04→15:59)
[2021-10-11] MEDS: Vancomycin 2,000 MG/520 ML IV.SOLN IVPB SCH (17:21)
[2021-10-12] MEDS: levETIRAcetam 250 MG TABLET PO SCH (06:10)
[2021-10-12] MEDS: *HR* Enoxaparin 40 MG/0.4 ML SYRINGE SQ SCH (06:10)
[2021-10-12 06:42] VITALS: BP 168/88; PULSE 51; RESP 17; TEMP 97.6; O2SAT 97
[2021-10-12] MEDS: Metoprolol XL (24 HR) Succ 25 MG TAB.ER.24H PO SCH (08:09)
[2021-10-12] MEDS: Famotidine 20 MG TABLET PO SCH (08:09)
[2021-10-12] MEDS: lisinopriL 5 MG TABLET PO SCH (08:10)
[2021-10-12] MEDS: amLODIPine 5 MG TABLET PO SCH (08:10)
[2021-10-12] MEDS: allopurinoL 100 MG TABLET PO SCH (08:10)
[2021-10-12] MEDS: Vancomycin Oral Soln 125 MG/2.5 ML UDC PO SCH (08:10)
== END 2021-10-12 14:17 | disposition home health service (06) | DRG 371 ==
LOC: INPPIK 20:17
PROVIDERS: ADMIT Internal Medicine; ATTEND Internal Medicine